=== PATIENT | male | born 1965 | race Two or more races ===

== ENCOUNTER 2021-06-29 16:21 | Emergency (ER) | payer SELFPAY ==
[~2021-06-29] VITALS: Ht 175.3 cm; Wt 69.4 kg
[2021-06-29 16:49] VITALS: BP 113/66
== END 2021-06-29 17:10 | disposition left against medical advice (07) ==
LOC: ER 16:21
DX: R10.9 Unspecified abdominal pain (principal); Z53.21 Procedure and treatment not carried out due to patient leaving prior to being seen by health care provider
CPT/HCPCS: 93005